=== PATIENT | male | born 1990 | race Caucasian/White ===

== ENCOUNTER 2017-04-29 06:51 | Inpatient (IN) ==
[2017-04-29 07:24] LABS: Basophils % 0.2 % (0.0-0.8); Eosinophils # 0.1 10*3/uL (0.0-0.87); Eosinophils % 0.7 % (0.00-10.9); Hematocrit 48.6 VOL% (42.0-52.0); Hemoglobin 17.5 GM/DL (14.0-18.0); Immature Granulocytes % 0.8 %; Lymphocytes # 1.5 10*3/uL (1.4-4.0); Lymphocytes % 11.4 % (21.2-54.2); Mean Corpuscular Hemoglobin 34 PG (27-34); Mean Corpuscular Volume 95.3 FL (87-102); Mean Platelet Volume 9.3 FL (9.6-12.0); Monocytes # 0.6 10*3/uL (0.11-0.8); Monocytes % 4.4 % (1.7-12.7); Neutrophils # 10.8 10*3/uL (1.4-7.4); Neutrophils % 82.5 % (38.7-73.9); Platelet Count 231 T/CUMM (130-400); Red Cell Distribution Width 12.9 % (9.3-17.3)
--- NOTE | 2017-04-29 07:42 | CT Report ---
Referring physician: Mono Magaña EXAM: CT abdomen and pelvis without contrast DATE: 04/29/2017 COMPARISON: None REASON: Right lower quadrant pain TECHNIQUE: Axial images of the abdomen and pelvis were obtained without the use of contrast. Coronal and sagittal reformatted images were also provided. Total DLP is 516.80 mGy*cm. FINDINGS: Minimal dependent findings at the visualized lung bases. The liver is normal in size with no masses, dilated ducts, calcified gallstones. The spleen is borderline in size. The pancreas, adrenal glands, and kidneys have an unremarkable appearance. No renal or ureteral calculi. The abdominal aorta is normal in size with no adjacent adenopathy. The stomach is minimally distended with fluid/food. No significant dilatation of the small bowel with small fat-containing umbilical hernia. Portions of the colon appears somewhat decompressed with no evidence of definite diverticulitis, appendicitis, free air, or free fluid. 9.72 mm hypodensity anterior medial to the sigmoid colon noted on image 141. The prostate has an unremarkable appearance with decompressed urinary bladder. No acute osseous findings. IMPRESSION: The stomach is minimally distended with fluid/food. Small fat-containing umbilical hernia. Limited evaluation of bowel without oral contrast but there is no evidence of appendicitis. 9.72 mm finding projecting from the medial aspect of the sigmoid colon. This finding could be related to minimal diverticulosis but it would be difficult to exclude epiploic appendagitis, small omental infarction, etc. The CT exam was performed using one or more of the following dose reduction techniques: Automated exposure control and adjustment of the mA and/or kV according to patient size. PROCEDURE INTERPRETED AT [facility] DEPARTMENT OF RADIOLOGY Final Report Signed by: Dr. Nini Martin
[2017-04-29 08:07] LABS: Albumin 3.8 G/DL (3.4-5.0); Bilirubin,Total 0.6 MG/DL (0.2-1.0); Calcium 8.7 MG/DL (8.5-10.1); Osmolality,Calculated 279.3 MOS/KG (273-304); Total Protein 7.3 G/DL (6.4-8.3)
--- NOTE | 2017-04-29 08:28 | Emergency Department Note ---
Sergey Antonio Hilary, am scribing for, and in the presence of, Mono Magaña MD 07:13. Archana Antonio Phillip K, MD, personally performed the services described in this documentation, ascribed by Komal Rincon in my presence, and it is both accurate and complete 828 . Arrival - Arrival Chief Complaint: Abdominal / Flank Pain Stated Complaint: acute lower r quadrant pain ED Nursing Triage Note: c/o rlq abd pain onset about 0400 this am. denies n/v/d or urinate problmes Mode of Arrival: Ambulatory Limitations: No Limitations Source: Patient, RN Notes Reviewed - History of Present Illness HPI Narrative: Pt is a 26 y/o brought to the ED via EMS for c/o RLQ abdominal pain which onset about 0400. Pt states that the pain is intermittent sharp pain, he can get comfortable but if he moves the pain comes back. He denies hematuria, nausea, vomiting, fever or hx of kidney stones. No other complaints or problems stated in the ED. Onset (ago): hour(s) Consistency: intermittent Severity: moderate Severity scale (1-10): 2 Quality: sharp Allergies/Adverse Reactions: Allergies Allergy/AdvReac Type Severity Reaction Status Date / Time No Known Allergies Allergy Unverified 04/29/17 07:00 Home Medications: Home Medications Medication Instructions Recorded Confirmed Type No Known Home Medications [No 04/29/17 04/29/17 History Known Home Medications] Review of System - Review of System 12 point system: reviewed and no additional remarkable complaints except as stated - Review of System Constitutional: Absent: fever Gastrointestinal: Present: abdominal pain (RUQ, RLQ). Absent: nausea, vomiting Genitourinary male: Absent: hematuria Medical,Surgical,& Family Hx - Social History Smoking Status: Smoker, status unknown Frequency of Alcohol Use: Occasionally Type of Drug Use: None Exam Vital Signs: Vital Signs Temperature 98.4 F 04/29/17 16:00 Pulse Rate 69 04/29/17 16:00 Respiratory Rate 18 04/29/17 16:00 Blood Pressure 122/93 04/29/17 16:00 O2 Sat by Pulse Oximetry 97 04/29/17 16:00 - General General appearance: alert, in no apparent distress - Head Head exam: Present: atraumatic, normocephalic - Eye Eye exam: Present: normal appearance, PERRL, EOMI - ENT ENT exam: Present: mucous membranes moist, TM's normal bilaterally. Absent: mucous membranes dry - Neck Neck exam: Present: full ROM, trachea midline. Absent: tenderness - Chest Chest inspection: Present: symmetric chest wall rise. Absent: tenderness - Respiratory Respiratory exam: Present: normal lung sounds bilaterally. Absent: respiratory distress - Cardiovascular Cardiovascular exam: Present: regular rate, normal rhythm, normal heart sounds. Absent: murmur, rubs, gallop - Abdominal Exam Abdominal exam: Present: soft, tenderness (RUQ and RLQ), normal bowel sounds, tenderness at McBurney's Point. Absent: distention, guarding, rebound - Extremities Exam Extremities exam: Present: full ROM. Absent: tenderness - Back Exam Back exam: Present: full ROM. Absent: tenderness - Neurological Exam Neurological exam: Present: alert, oriented X3, CN II-XII intact. Absent: motor sensory deficit - Psychiatric Psychiatric exam: Present: normal affect, normal mood - Skin Skin exam: Present: warm, dry, intact, normal color. Absent: rash Course Course Narrative: On reexamination at 820 patient has his pain localized in the right upper quadrant and has no right lower quadrant tenderness. There were no gallstones seen on his CT. We will get a HIDA scan to evaluate his gallbladder function. Patient discussed with the hospitalist. HIDA scan shows all the isotope confined to the liver there was no excretion to the gallbladder or small intestine. We will obtain a sonogram of his gallbladder to see if he has an obstructed common bile duct. We will admit to the hospitalist for further evaluation. Sonogram shows gallstones with acute cholecystitis and sludge. Will admit and consult surgery and GI for possible ERCP. Results - Labs CBC & BMP: 04/29/17 07:09 04/29/17 07:09 Lab Results: I have reviewed the patients labs Labs: Laboratory Tests 04/29/17 07:09 WBC 13.0 H RBC 5.10 Hgb 17.5 Hct 48.6 Plt Count 231 MPV 9.3 L Neut % (Auto) 82.5 H Lymph % (Auto) 11.4 L Neut # (Auto) 10.8 H Laboratory Tests 04/29/17 07:09 Sodium 141 Potassium 4.0 Chloride 107 Carbon Dioxide 29 AST 130 H ALT 68 H Alkaline Phosphatase 139 H Total Protein 7.3 Albumin/Globulin Ratio 1.0 L Laboratory Tests 04/29/17 07:09 Urine pH 8.0 Ur Specific [place] 1.016 Urine Urobilinogen 4.0 H Urine WBC 4 Laboratory Tests 04/29/17 07:09 INR 1.0 PT Patient/Control Mix 10.8 Circ Anticoag PTT 30.8 - Diagnostic Findings Procedure: CT Abdomen and Pelvis: report reviewed by me (The stomach is minimally distended with fluid/food. Small fat containing umbilical hernia. Limited evaluation of bowel without oral contrast vut there is no evidence of appendicitis. 9.72mm finding projection from the medial aspect of the sigmoid colon. This finding could be related to minimal diverticulosis but it would be difficult to exclude epiploic appendagitis, small omental infarction.), Ultrasound: report reviewed by me (Cholelithiasis with acute cholecystitis, common bile duct is at the upper limits of normal.) Disposition Clinical Impression: Right upper quadrant abdominal pain, Elevated liver enzymes, Cholelithiasis and acute cholecystitis without obstruction Case discussed with: patient, patient's family Disposition: Still a Patient Condition: Guarded
[2017-04-29 10:12] LABS: Amorphous Crystals,Urine Occasional /HPF (Few); Apearance,Urine CLOUDY (Clear); Bilirubin,Urine Negative (Negative); Blood, Urine Negative (Negative); Glucose,Urine (UA) Negative (Negative); Ketones,Urine Negative (Negative); Mucus,Urine Few /LPF (Occasional); Nitrite,Urine Negative (Negative); Protein,Urine Negative; Urine Color Yellow (Yellow); Urine Specific Gravity 1.016 (1.001-1.035); WBC,Urine 4 /HPF (0-6)
[2017-04-29 10:30] LABS: PT Patient Result 10.8 SECS; Partial Thromboplastin Time 30.8 SECS (0-40)
[2017-04-29 11:29] LABS: Hepatitis A Ab IgM Quant 0.07 Index; Hepatitis A Ab IgM Result Negative (Negative); Hepatitis B Core IgM Quant 0.16 Index; Hepatitis B Core IgM Result Negative (Negative); Hepatitis B Surface Ag Quant 0.24 Index; Hepatitis B Surface Ag Result Negative (Negative); Hepatitis C Virus Ab Quant 0.02 Index; Hepatitis C Virus Ab Result Negative (Negative)
--- NOTE | 2017-04-29 11:38 | Nuclear Medicine Report ---
Exam: Biliary Scan Date: 04/29/2017 Comparison: CT 04/29/2017 Reason: Right upper quadrant pain Technique: The patient was administered 5 mCi of technetium 99m Choletec IV. Images of the right upper quadrant were then acquired over 150 minutes. Ejection fraction not performed. Findings: The liver is normal in size with uniform activity. No isotopic activity noted in the gallbladder or bile ducts on the 2 1/2 hour delayed scans. Ejection fraction not performed due to nonvisualization of the gallbladder. Impression: Nonvisualization of the bile ducts and gallbladder which can be seen with acute high-grade CBD obstruction, hepatocellular disease, opioid medication, etc. Gallbladder ultrasound is recommended for further evaluation as discussed with Dr. Magaña at 11:30 AM on 04/29/2017. PROCEDURE INTERPRETED AT [facility] DEPARTMENT OF RADIOLOGY Final Report Signed by: Dr. Nini Martin
--- NOTE | 2017-04-29 12:05 | General Surgery Consult Note ---
Assessment and Plan (1) Right upper quadrant abdominal pain Status: Acute Assessment and plan: Patient with possible acute cholecystitis associated with cholelithiasis. Recommend IV antibiotics and GI consultation with repeat labs in the morning. Patient may require cholecystectomy, but we will await GI consultation with evaluation and recommendations prior to final decisions. We appreciate this consultation and will continue to follow along. Current Visit: Yes History of Present Illness Chief complaint: Right sided abdominal pain History of present illness: Mr. Zapata is a 26 year old male presented who presented to the emergency department with acute onset of right-sided abdominal pain this morning approximately 4:30 AM. Patient reports the pain awoke him from his late with no associated nausea or vomiting. He has had no fever, chills, riders, melena, hematochezia, bright red blood per rectum. Patient reports a similar pain approximately 1 week ago which only lasted a few minutes and was not necessarily associated with a meal. Patient denies any significant Tylenol or NSAID use. He does drink approximately 2 beers daily. No previous abdominal procedures. Allergies Allergy/AdvReac Type Severity Reaction Status Date / Time No Known Allergies Allergy Unverified 04/29/17 07:00 Medical,Surgical,& Family Hx - Medical History Medical History: noncontributory - Surgical History Surgical History: noncontributory - Social History Smoking Status: Smoker, status unknown Frequency of Alcohol Use: Occasionally Type of Drug Use: None - Constitutional Constitutional: Present: as per HPI - Cardiovascular Cardiovascular: Absent: chest pain at rest, chest pain with activity - Respiratory Respiratory: Absent: cough, wheezing - Gastrointestinal Gastrointestinal: Present: as per HPI - Genitourinary Genitourinary: Absent: dysuria Exam - Constitutional Vitals: Period Temp Pulse Resp BP Sys/Gonsales Pulse Ox Last 24 Hr 97.4 F-97.4 F 62-78 18-20 107-125/81-93 95-96 General appearance: no acute distress - Head Head exam: Present: normocephalic - Eye Eye exam: Absent: scleral icterus - GI/Abdominal GI/Abdominal exam: Present: tenderness (Patient is tender over the right lower quadrant and with worsening tenderness over the right upper quadrant; positive Robledo sign), soft. Absent: distended, firm - Extremities Exam Extremities exam: Absent: calf tenderness, edema - Neurological Exam Neurological exam: Present: alert, oriented X3 - Skin Skin exam: Present: normal color Results - Labs CBC & BMP: 04/29/17 07:09 04/29/17 07:09 Lab Results: I have reviewed the past 24 hour labs Labs: AST 130, ALT 68, alkaline phosphatase 139; urinalysis unremarkable HIDA scan nonvisualization of bile ducts and gallbladder Abdominal ultrasound: Final read pending; reported patient with multiple gallstones and biliary sludge Abdominal CT scan reviewed and noted
--- NOTE | 2017-04-29 12:31 | Ultrasound Report ---
Exam: US abdomen Date: 04/29/2017 11:42 AM Comparison: CT and biliary scan 04/29/2017 Indication: Right upper quadrant pain, abnormal biliary scan Technique:[Multiple transabdominal real-time scans were obtained of the right upper quadrant. Color-flow scans were obtained. Ultrasound images were captured and stored.] Findings: Hyperechoic foci in the gallbladder with posterior acoustical shadowing consistent with cholelithiasis and sludge. The wall of the gallbladder measures 4.8 mm with very minimal pericholecystic fluid. CBD is at the upper limits of normal in size measuring 5.8 mm. The liver,, right kidney, and visualized pancreas have an unremarkable appearance. Right kidney measures 106 mm in length. Portions of the pancreas, aorta including the aortic bifurcation, and IVC are obscured by bowel gas. Color flow documented in the portal vein. Impression: Cholelithiasis with sludge in the gallbladder. Gallbladder wall thickening with minimal pericholecystic fluid which can be seen with acute cholecystitis. The common bile duct is at the upper limits of normal in size measuring 5.8 mm. ERCP may be helpful for further evaluation because of findings noted on biliary scan. The Ultrasound images were captured and stored. PROCEDURE INTERPRETED AT [facility] DEPARTMENT OF RADIOLOGY Final Report Signed by: Dr. Nini Martin
--- NOTE | 2017-04-29 14:18 | Hospitalist History & Physical ---
Assessment and Plan (1) Cholelithiasis Status: Acute Assessment and plan: Given the elevation of her liver function tests and leukocytosis with abdominal pain that localized in the right upper quadrant as well as the patient's ultrasound findings I believe he has symptomatic cholelithiasis versus choledocholithiasis with cholecystitis. The patient has been seen by general surgery and a GI consult is pending. I will start him on IV antibiotics, IV fluids, pain medications. Further workup will depend on his response to therapy. Current Visit: Yes Qualifiers: Cholelithiasis location: gallbladder Cholecystitis presence: with cholecystitis Cholecystitis acuity: acute Biliary obstruction: without biliary obstruction Qualified Code(s): K80.00 - Calculus of gallbladder with acute cholecystitis without obstruction (2) Right upper quadrant abdominal pain Status: Acute Current Visit: Yes (3) Elevated liver enzymes Status: Acute Assessment and plan: Hepatitis panel negative Consult GI for consideration of ERCP Current Visit: Yes History of Present Illness Chief complaint: Abdominal pain History of present illness: Mr. Zapata is a 26 year old male presents to the emergency department with right upper quadrant abdominal pain that began about 0400. Pt states that the pain is intermittent sharp pain, he can get comfortable but if he moves the pain comes back. He denies hematuria, nausea, vomiting, fever or hx of kidney stones. No other complaints or problems stated in the ED. He underwent an evaluation in the emergency department with CT and ultrasound and HIDA scan. He had evidence of gallstones on ultrasound with lack of isotope uptake in the gallbladder on HIDA. He is being admitted to the hospital service for further evaluation and treatment of his cholelithiasis/ choledocholithiasis with possible cholecystitis. The patient denies any past medical history. He takes no medications and has no allergies. Home Medications Medication Instructions Recorded Confirmed Type No Known Home Medications [No 04/29/17 04/29/17 History Known Home Medications] Allergies Allergy/AdvReac Type Severity Reaction Status Date / Time No Known Allergies Allergy Unverified 04/29/17 07:00 Medical,Surgical,& Family Hx - Family History Family History: Denies;: Family Heart Disease - Social History Smoking Status: Current some day smoker Frequency of Alcohol Use: Occasionally Type of Drug Use: Marijuana Marital Status: Single Lives With:: Alone Functional capacity: independent ambulation 12 point system: reviewed and no additional remarkable complaints except as stated - Gastrointestinal Gastrointestinal: Present: as per HPI, abdominal pain, nausea Exam - Constitutional Vitals: Period Temp Pulse Resp BP Sys/Gonsales Pulse Ox Last 24 Hr 97.4 F-97.4 F 56-78 18-20 105-137/75-93 95-98 Exam: Constitutional System: No distress. No tremulousness. Head: Normocephalic, atraumatic. Ears, Nose and Throat System: No pain or tenderness. No epistaxis or discharge Eyes System: Pupils equal, round, and reactive. Extraocular muscles intact. Neck: Supple, without adenopathy, No jugular venous distention. No thyromegaly, neck mass, or prior surgery apparent. Respiratory System: Chest clear to auscultation. Cardiovascular System: Heart with regular rate and rhythm. No murmur. GI System: Abdomen soft, tender in the right upper quadrant. Positive Robledo sign. Normo active bowel sounds present. Musculoskeletal System: limbs with no pedal edema. Full distal pulses. Normal capillary refill. Neurological System: No discernable sensory deficit. No aphasia Psychiatric System: Conversation is rational Results - Labs CBC & BMP: 04/29/17 07:09 04/29/17 07:09 Lab Results: I have reviewed the past 24 hour labs - Diagnostic Findings Procedure: CT Abdomen and Pelvis: report reviewed by me, Ultrasound: report reviewed by me
[2017-04-29] MEDS ORDERED: SODIUM CHLORIDE 0.9% 1,000 ML IV STA (14:21)
[2017-04-29] MEDS ORDERED: PROMETHAZINE 25 MG TABLET PO PRN (14:25)
[2017-04-29] MEDS ORDERED: ZALEPLON 5 MG CAPSULE PO PRN (14:25)
--- NOTE | 2017-04-29 14:51 | Gastrointestinal Consult Note ---
<Kayce Camacho - Last Filed: 04/29/17 14:45> Assessment and Plan (1) Right upper quadrant abdominal pain Status: Acute Assessment and plan: 04/29-Sudden onset of RUQ pain with nausea with findings as below on HIDA and US. Elevated LFTs. Surgery has been consulted. Plan for tentative ERCP to further evalute findings as below. Plan and addendum to follow by Dr Pugh. Current Visit: Yes History of Present Illness Chief complaint: Abd pain History of present illness: Mr. Zapata is a 26 year old male who was admitted to the hospital with onset of RUQ abdominal pain. Pt states that he was in his usual state of health until this morning when he got up to go to work and had a sudden severe onset of RUQ pain that radiated thru to his back. He states that the pain was very severe nature and was incapacitating as well. He states his became alarmed due to his pain level and brought him to the ER via EMS. Pt states that he has had this pain in the past on several occasions but not to this severity. He states the pain is not associated with meals that he can recall. He did have some nausea but denies any vomiting with this. Denies any fever, chills or recent weight loss. He states that he does drink 1-2 beers daily on average. Denies prior knowledge of elevated LFTS in the past. On admission, he was found to have elevated LFTs with AST 130, ALT 68, and Alk phos 139. He did have some mild leukocytosis with WBC 55158. Hepatitis panel negative. Abd US noted to show cholelithiasis with sludge in gallbladder as well as some wall thickening, CBD 5.8mm. HIDA shows nonvisualization of bile ducts and gallbladder seen with acute high grade CBD obstruction. CT of abdomen results noted as well with mention of 9.72mm projected finding in medial aspect of sigmoid colon with no prior GI history or endoscopy. Home Medications Medication Instructions Recorded Confirmed Type No Known Home Medications [No 04/29/17 04/29/17 History Known Home Medications] Allergies Allergy/AdvReac Type Severity Reaction Status Date / Time No Known Allergies Allergy Unverified 04/29/17 07:00 Medical,Surgical,& Family Hx - Family History Family History: Denies;: Family Heart Disease - Social History Smoking Status: Current some day smoker Frequency of Alcohol Use: Occasionally Type of Drug Use: Marijuana 12 point system: reviewed and no additional remarkable complaints except as stated - Constitutional Constitutional: Present: as per HPI - EENT Eyes: Present: as per HPI Ears: Present: as per HPI Nose, mouth and throat: Present: as per HPI - Cardiovascular Cardiovascular: Present: as per HPI - Respiratory Respiratory: Present: as per HPI - Gastrointestinal Gastrointestinal: Present: as per HPI, abdominal pain, nausea - Genitourinary Genitourinary: Present: as per HPI - Musculoskeletal Musculoskeletal: Present: as per HPI - Neurological Neurological: Present: as per HPI - Psychiatric Psychiatric: Present: as per HPI - Endocrine Endocrine: Present: as per HPI - Hematologic/Lymphatic Hematologic/Lymphatic: Present: as per HPI Exam - Constitutional Vitals: Period Temp Pulse Resp BP Sys/Gonsales Pulse Ox Last 24 Hr 97.4 F-97.4 F 52-78 18-20 105-137/75-93 95-98 General appearance: normal weight, no acute distress - Head Head exam: Present: normal inspection, normocephalic - Eye Eye exam: Present: other (lids and conjunctiva unremarkable). Absent: scleral icterus - ENT ENT exam: Present: normal exam, normal oropharynx - Neck Neck exam: Present: normal inspection - Respiratory Respiratory exam: Present: clear to auscultation bilaterally. Absent: rales, rhonchi, wheezes - Cardiovascular Cardiovascular exam: Present: regular rate and rhythm. Absent: diastolic murmur , JVD, systolic murmur - GI/Abdominal GI/Abdominal exam: Present: normal bowel sounds, tenderness (RUQ), soft. Absent : ascites, distended, mass, organomegaly - Extremities Exam Extremities exam: Present: normal inspection, full ROM - Back Exam Back exam: Present: normal inspection - Neurological Exam Neurological exam: Present: alert, oriented X3 - Psychiatric Psychiatric exam: Present: normal affect, normal mood - Skin Skin exam: Present: normal color, warm, dry Results - Labs CBC & BMP: 04/29/17 07:09 04/29/17 07:09 Lab Results: I have reviewed the past 24 hour labs - Diagnostic Findings Procedure: CT Abdomen and Pelvis: report reviewed by me, Ultrasound: report reviewed by me <Anish Pugh - Last Filed: 04/29/17 17:24> History of Present Illness Chief complaint: 3030 History of present illness: Mr. Zapata is a 26 year old male Exam - Constitutional Vitals: Period Temp Pulse Resp BP Sys/Gonsales Pulse Ox Last 24 Hr 97.4 F-98.4 F 52-78 18-20 105-137/75-93 95-98 Results - Labs CBC & BMP: 04/29/17 07:09 04/29/17 07:09
[2017-04-29] MEDS: DEXTROSE 5% NACL 0.45% 1,000 ML IV SCH (15:44)
[2017-04-29] MEDS: PIPERACILLIN/TAZOBACTAM 3,375 MG in SODIUM CHLORIDE 0.9% 100 ML IV SCH ×2 (15:46→23:08)
[2017-04-29] MEDS: MORPHINE 2 MG/1 ML SYRINGE IV PRN ×2 (17:27→21:01)
[2017-04-29] MEDS: ONDANSETRON 4 MG/2 ML VIAL IV PRN (17:35)
[2017-04-29] MEDS: ENOXAPARIN 40 MG/0.4 ML SYRINGE SUBCUT SCH (20:16)
[2017-04-30] MEDS: MORPHINE 2 MG/1 ML SYRINGE IV PRN ×4 (00:50→18:18)
[2017-04-30] MEDS: ONDANSETRON 4 MG/2 ML VIAL IV PRN ×4 (00:50→18:17)
[2017-04-30] MEDS: DEXTROSE 5% NACL 0.45% 1,000 ML IV SCH ×3 (02:32→22:11)
[2017-04-30 05:31] LABS: Basophils % 0.3 % (0.0-0.8); Eosinophils # 0.2 10*3/uL (0.0-0.87); Eosinophils % 2.3 % (0.00-10.9); Hematocrit 43.7 VOL% (42.0-52.0); Immature Granulocytes % 0.6 %; Immature Granulocytes Absolute 0.04 #; Lymphocytes # 1.6 10*3/uL (1.4-4.0); Lymphocytes % 22.5 % (21.2-54.2); Mean Corpuscular HGB Conc 35.2 GM/DL (32-36); Mean Corpuscular Hemoglobin 34 PG (27-34); Mean Corpuscular Volume 96.5 FL (87-102); Mean Platelet Volume 10.5 FL (9.6-12.0); Monocytes # 0.4 10*3/uL (0.11-0.8); Neutrophils # 4.8 10*3/uL (1.4-7.4); Neutrophils % 68.3 % (38.7-73.9); Red Blood Count 4.53 MC/CUMM (3.8-5.5); Red Cell Distribution Width 12.7 % (9.3-17.3)
[2017-04-30 05:32] LABS: INR 1.1; PT Patient Result 11.4 SECS
[2017-04-30 05:35] LABS: Hemoglobin 15.4 GM/DL (14.0-18.0); Platelet Count 175 T/CUMM (130-400)
[2017-04-30 06:05] LABS: Albumin 3.1 G/DL (3.4-5.0); Bilirubin,Total 3.5 MG/DL (0.2-1.0); Osmolality,Calculated 276.4 MOS/KG (273-304)
[2017-04-30 06:16] LABS: Risk Ratio 4.08
[2017-04-30] MEDS: PIPERACILLIN/TAZOBACTAM 3,375 MG in SODIUM CHLORIDE 0.9% 100 ML IV SCH ×3 (06:46→22:52)
[2017-04-30] MEDS: PANTOPRAZOLE 40 MG TABLET PO SCH (08:32)
--- NOTE | 2017-04-30 11:01 | General Surgery Progress Note ---
Assessment and Plan (1) Right upper quadrant abdominal pain Status: Acute Assessment and plan: Patient will proceed with ERCP today. Anticipate laparoscopic cholecystectomy in a.m. pending no unforeseen complications. The risks of the procedure were reviewed with patient including but limited to risk for open procedure, infection, bleeding, injury to adjacent structures, adhesions, bowel obstruction , the need for additional procedures, and other cardiac, pulmonary, and/or neurologic events associated which may be unforeseeable. The patient expressed understanding of these risks and agrees to proceed. Current Visit: Yes Subjective Patient reports: Present: no new complaints (Awaiting ERCP. RUQ pain slighlty improved but persistent. ) Exam - Constitutional Vitals: Period Temp Pulse Resp BP Sys/Gonsales Pulse Ox Last 24 Hr 96.6 F-98.6 F 47-76 16-20 106-137/64-95 95-100 General appearance: no acute distress - Head Head exam: Present: normocephalic - GI/Abdominal GI/Abdominal exam: Present: tenderness (RUQ), soft. Absent: distended, firm, guarding - Extremities Exam Extremities exam: Absent: calf tenderness, edema - Neurological Exam Neurological exam: Present: alert, oriented X3 Speech: Present: normal - Skin Skin exam: Present: normal color Results - Labs CBC & BMP: 04/30/17 03:45 04/30/17 03:45 Labs: Leukocytosis resolved Bilirubin increased to 3.5; AST increased at 254; ALT increased to 92; alkaline phosphatase increased at 147
[2017-04-30] MEDS ORDERED: fentaNYL 100 MCG/2 ML VIAL ONE (11:11)
[2017-04-30] MEDS ORDERED: DIAZEPAM 5 MG TABLET PO ONE (11:27)
[2017-04-30] MEDS ORDERED: PANTOPRAZOLE 40 MG TABLET PO ONE (11:27)
[2017-04-30] MEDS ORDERED: LACTATED RINGERS 1,000 ML IV SCH (11:30)
--- NOTE | 2017-04-30 11:37 | History and Physical Update ---
History and Physical Update - Physical Exam Mental Status: alert and oriented Heart: regular rate and rhythm Lung: clear to auscultation Abdomen: within normal limits Vitals: within normal limits
--- NOTE | 2017-04-30 11:40 | Operative Note ---
Date of procedure: 04/30/17 Pre-op diagnosis: Suspected choledocholithiasis Procedure: Endoscopic retrograde cholangiopancreatography with sphincterotomy and balloon stone extraction 26-year-old gentleman admitted with abrupt onset of abdominal pain abnormal liver test radiographic examination suggest choledocholithiasis now for ERCP to further evaluate. Informed consent was obtained the patient He was sedated with MAC anesthesia per anesthesia protocol. Patient placed in the prone position the Olympus flexible video duodenal scope inserted blindly into the upper esophagus. Under direct vision it was advanced through the esophagus stomach pylorus duodenum to a normal-appearing ampulla. Using a sphincterotome the ampulla was cannulated pancreatic duct was noted to be within normal limits from the head body tail the pancreas. The catheter was subsequently repositioned with selective cannulation of the common bile duct with what appears to be a filling defect in the distal common bile duct. No significant ductal dilatation was observed the cystic duct initially appeared to be occluded but did visualize. It was elected to proceed with sphincterotomy and 8 mm sphincterotomy was performed with good hemostasis. Subsequent balloon catheter was inserted and the biliary tree pulled out 3 inflated 8 mm with removal of stone debris. No residual stones or debris were noted on the final image. The procedure was terminated placed our procedure well his discharge recovery good condition. Postop diagnosis: 1. Choledocholithiasis-status post sphincterotomy and balloon stone extraction 2. Cholelithiasis-proceed with cholecystectomy per surgery. Anesthesia: [facility] [place] [facility] Surgeon / Physician: Anish Pugh Estimated blood loss: none Specimens: none sent Condition: stable Disposition: post procedure unit Results - Labs CBC & BMP: 04/30/17 03:45 04/30/17 03:45 Discharge Plan - Discharge Medications No Action No Known Home Medications [No Known Home Medications] - Follow Up or Referral - Forms/Instructions
--- NOTE | 2017-04-30 11:45 | Anesthesia Post-Op ---
Anesthesia Post OP - Post Ansesthetic Evaluation Patient seen in post op: Yes Resp: within normal limits CV: within normal limits Mental: within normal limits Temp: within normal limits Lvia-Ja-Nlldxfglx: within normal limits Nausea and Vomiting: within normal limits Pain: within normal limits
--- NOTE | 2017-04-30 11:58 | EKG Report ---
Stationary ECG Study [facility] Test Date: 04/30/2017 11:57:47 AM Pat Name: MARIAM GARCIA Department: Room: 344 Gender: M Diagnostic Cardiac Sonographer: RISHABH : 1990 Requested by: Vamsi Flores Order Number: [id number] Reading MD: PASHA MOLINA Intervals [place] Rate: 48 P: 38 TN: 151 QRS: 75 QRSD: 94 T: 61 QT: 421 QTc: 389 Interpretive Statements SINUS BRADYCARDIA WITH MARKED SINUS ARRHYTHMIA Electronically Signed On 04-30-17 16:57:57 CDT by PASHA MOLINA [email or web address]
--- NOTE | 2017-04-30 13:13 | Fluoroscopy Report ---
FL ERCP w sphincterotomy Indication: Abdominal pain. Comparison: None. Technique: Multiple fluoroscopic images were obtained using the C-arm in the anterior projection during ERCP. The procedure is performed by Dr. Pugh. Findings: No filling defects are demonstrated involving the opacified portions of the biliary tree or main pancreatic duct. The distal common bile duct appears to have a short segment stenosis as it approaches the confluence with the main pancreatic duct. Differential considerations include post infectious etiologies as well as neoplastic etiologies. On later images within the study there may be some improvement in the appearance. Total fluoroscopy time is 1 minute 44 seconds. Impression: 1. Findings as detailed. 04/30/2017 1:09 PM PROCEDURE INTERPRETED AT [facility] DEPARTMENT OF RADIOLOGY Final Report Signed by: Dr. Tim De La Torre
--- NOTE | 2017-04-30 17:17 | Hospitalist Progress Note ---
Assessment and Plan (1) Cholelithiasis Status: Acute Assessment and plan: Given the elevation of her liver function tests and leukocytosis with abdominal pain that localized in the right upper quadrant as well as the patient's ultrasound findings I believe he has symptomatic cholelithiasis versus choledocholithiasis with cholecystitis. The patient has been seen by general surgery and a GI. I will start him on IV antibiotics, IV fluids, pain medications. Further workup will depend on his response to therapy. 04/30/17 The patient has undergone ERCP with stone retrieval. He is being evaluated by general surgery for possible cholecystectomy. Current Visit: Yes Qualifiers: Cholelithiasis location: gallbladder Cholecystitis presence: with cholecystitis Cholecystitis acuity: acute Biliary obstruction: without biliary obstruction Qualified Code(s): K80.00 - Calculus of gallbladder with acute cholecystitis without obstruction (2) Right upper quadrant abdominal pain Status: Acute Current Visit: Yes (3) Elevated liver enzymes Status: Acute Assessment and plan: Hepatitis panel negative GI consult reviewed. ERCP report noted. Appreciate Dr. Pugh's help. Current Visit: Yes Hospitalist: Subjective Interval history: Patient seen and examined. No acute events overnight. Case discussed with nursing staff. Labs reviewed. Patient seen and examined status post ERCP with stone removal and sphincterotomy. He reports continued right upper quadrant abdominal pain. Exam - Constitutional Vitals: Period Temp Pulse Resp BP Sys/Gonsales Pulse Ox Last 24 Hr 96.6 F-98.6 F 47-76 16-20 106-137/64-95 95-100 Exam: Constitutional System: No distress. No tremulousness. Head: Normocephalic, atraumatic. Ears, Nose and Throat System: No pain or tenderness. No epistaxis or discharge Eyes System: Pupils equal, round, and reactive. Extraocular muscles intact. Neck: Supple, without adenopathy, No jugular venous distention. No thyromegaly, neck mass, or prior surgery apparent. Respiratory System: Chest clear to auscultation. Cardiovascular System: Heart with regular rate and rhythm. No murmur. GI System: Abdomen soft, tender in the right upper quadrant. Positive Robledo sign. Normo active bowel sounds present. Musculoskeletal System: limbs with no pedal edema. Full distal pulses. Normal capillary refill. Neurological System: No discernable sensory deficit. No aphasia Psychiatric System: Conversation is rational Results - Labs CBC & BMP: 08/30/17 03:45 04/30/17 03:45 Lab Results: I have reviewed the past 24 hour labs
[2017-04-30] MEDS: ENOXAPARIN 40 MG/0.4 ML SYRINGE SUBCUT SCH (21:23)
[2017-05-01 05:29] LABS: Albumin 3.1 G/DL (3.4-5.0); Bilirubin,Total 1.6 MG/DL (0.2-1.0); Calcium 8.4 MG/DL (8.5-10.1); Osmolality,Calculated 276.4 MOS/KG (273-304); Potassium 4.2 MMOL/L (3.5-5.1)
[2017-05-01] MEDS ORDERED: PANTOPRAZOLE 40 MG TABLET PO ONE (06:00)
[2017-05-01] MEDS ORDERED: DIAZEPAM 5 MG TABLET PO ONE (06:00)
[2017-05-01] MEDS: MORPHINE 2 MG/1 ML SYRINGE IV PRN (07:28)
[2017-05-01] MEDS: PIPERACILLIN/TAZOBACTAM 3,375 MG in SODIUM CHLORIDE 0.9% 100 ML IV SCH (07:28)
[2017-05-01] MEDS: PANTOPRAZOLE 40 MG TABLET PO SCH (08:54)
[2017-05-01] MEDS ORDERED: TISSUE ADHESIVE 1 EACH APPLICATOR TOP ONE (09:04)
[2017-05-01] MEDS ORDERED: LIDOCAINE 1%/EPI INJ 20 ML VIAL ONE (09:04)
[2017-05-01] MEDS ORDERED: BUPIVACAINE MPF 0.25% /EPI 30 ML VIAL ONE (09:06)
[2017-05-01] MEDS: DEXTROSE 5% NACL 0.45% 1,000 ML IV SCH (09:07)
--- NOTE | 2017-05-01 09:39 | Gastrointestinal Progress Note ---
<Kayce Camacho - Last Filed: 05/01/17 09:37> Assessment and Plan (1) Right upper quadrant abdominal pain Status: Acute Assessment and plan: 05/01-Post ERCP with findings noted as below. LFTs trending down. For lap alfredo this morning. Plan and addendum to follow by Dr Pugh. 04/29-Sudden onset of RUQ pain with nausea with findings as below on HIDA and US. Elevated LFTs. Surgery has been consulted. Plan for tentative ERCP to further evalute findings as below. Plan and addendum to follow by Dr Pugh. Gastroenterology - PN: Subj Interval history: CC: Choledocholithiasis Pt is seen, awake and alert, with family at side, getting ready to go for laprascopic cholecystectomy this morning. He is post ERCP with findings of ductal stone and sludge with sphincterotomy. He states he had an uneventful night and denies any abdominal pain, nausea or vomiting. His LFTS are trending downward at this time. Abdomen is soft, nontender. ROS: Denies SOB or chest pain Exam (Progress Note) - Constitutional Vitals: Period Temp Pulse Resp BP Sys/Gonsales Pulse Ox Last 24 Hr 96.6 F-98.4 F 50-63 16-20 101-137/57-95 94-100 General appearance: normal weight, no acute distress - Head Head exam: Present: normal inspection, normocephalic - Eye Eye exam: Present: other (lids and conjuncitva unremarkable). Absent: scleral icterus - ENT ENT exam: Present: normal exam, normal oropharynx - Neck Neck exam: Present: normal inspection - Respiratory Respiratory exam: Present: clear to auscultation bilaterally. Absent: rales, rhonchi, wheezes - Cardiovascular Cardiovascular exam: Present: regular rate and rhythm. Absent: diastolic murmur , JVD, systolic murmur - GI/Abdominal GI/Abdominal exam: Present: normal bowel sounds, soft. Absent: ascites, distended, mass, organomegaly, tenderness - Extremities Exam Extremities exam: Present: normal inspection, full ROM - Back Exam Back exam: Present: normal inspection - Neurological Exam Neurological exam: Present: alert, oriented X3 - Psychiatric Psychiatric exam: Present: normal affect, normal mood - Skin Skin exam: Present: normal color, warm, dry Results - Labs CBC & BMP: 04/30/17 03:45 05/01/17 03:29 Lab Results: I have reviewed the past 24 hour labs Specialty Discharge - Follow Up or Referrals Follow up with: Nishant Lombardi MD [Physician] - 05/14/17 10:30 am <Anish Pugh - Last Filed: 05/01/17 18:07> Exam (Progress Note) - Constitutional Vitals: Period Temp Pulse Resp BP Sys/Gonsales Pulse Ox Last 24 Hr 97.5 F-98.9 F 53-102 16-20 101-133/57-87 90-99 Results - Labs CBC & BMP: 04/30/17 03:45 05/01/17 03:29
--- NOTE | 2017-05-01 10:38 | Fluoroscopy Report ---
Exam: [place] cholangiogram in surgery Date: 05/01/2017 12:00 AM Comparison: ERCP 04/30/2017 Indication: Right upper quadrant pain Technique:[Fluoroscopy, all 28 seconds documented. 19 films were obtained.] Findings: Injection of nonionic contrast material into the nondilated bile duct. Small filling defects are noted with contrast in the duodenum. Impression: Probable small air bubbles with no obstructing calculus identified. PROCEDURE INTERPRETED AT [facility] DEPARTMENT OF RADIOLOGY Final Report Signed by: Dr. Nini Martin
--- NOTE | 2017-05-01 10:47 | Anesthesia Post-Op ---
Anesthesia Post OP - Post Ansesthetic Evaluation Patient seen in post op: Yes Resp: within normal limits CV: within normal limits Mental: within normal limits Temp: within normal limits Wmpx-Yv-Knwkcmlsy: within normal limits Nausea and Vomiting: within normal limits Pain: within normal limits
[2017-05-01] MEDS ORDERED: HYDROmorphone 2 MG/1 ML VIAL ONE (10:49)
[2017-05-01] MEDS ORDERED: PROPOFOL 200 MG/20 ML VIAL IV ONE (10:49)
[2017-05-01] MEDS ORDERED: SEVOFLURANE 1 UNIT/15 MINUTE INH ONE (10:49)
[2017-05-01] MEDS ORDERED: ONDANSETRON 4 MG/2 ML VIAL ONE (10:50)
[2017-05-01] MEDS ORDERED: ROCURONIUM 100 MG/10 ML VIAL IV ONE (10:50)
[2017-05-01] MEDS ORDERED: MIDAZOLAM 2 MG/2 ML VIAL ONE (10:50)
[2017-05-01] MEDS ORDERED: DEXAMETHASONE 10 MG/1 ML VIAL ONE (10:50)
[2017-05-01] MEDS ORDERED: GLYCOPYRROLATE 0.4 MG/2 ML VIAL ONE (10:50)
[2017-05-01] MEDS ORDERED: fentaNYL 100 MCG/2 ML VIAL ONE (10:50)
[2017-05-01] MEDS ORDERED: NEOSTIGMINE 10 MG/10 ML VIAL ONE (10:50)
[2017-05-01] MEDS ORDERED: KETOROLAC 30 MG/1 ML VIAL ONE (10:50)
--- NOTE | 2017-05-01 11:43 | Hospitalist Progress Note ---
Assessment and Plan (1) Cholelithiasis Status: Acute Assessment and plan: Given the elevation of her liver function tests and leukocytosis with abdominal pain that localized in the right upper quadrant as well as the patient's ultrasound findings I believe he has symptomatic cholelithiasis versus choledocholithiasis with cholecystitis. The patient has been seen by general surgery and a GI. I will start him on IV antibiotics, IV fluids, pain medications. Further workup will depend on his response to therapy. 04/30/17 The patient has undergone ERCP with stone retrieval. He is being evaluated by general surgery for possible cholecystectomy. Current Visit: Yes Qualifiers: Cholelithiasis location: gallbladder Cholecystitis presence: with cholecystitis Cholecystitis acuity: acute Biliary obstruction: without biliary obstruction Qualified Code(s): K80.00 - Calculus of gallbladder with acute cholecystitis without obstruction (2) Right upper quadrant abdominal pain Status: Acute Current Visit: Yes (3) Elevated liver enzymes Status: Acute Assessment and plan: Hepatitis panel negative GI consult reviewed. ERCP report noted. Appreciate Dr. Pugh's help. Current Visit: Yes Hospitalist: Subjective Interval history: The case was discussed at length with Dr. Gupta. The patient underwent successful cholecystectomy today. Dr. Gupta has agreed to accept the patient onto his service and discharge him when he deems appropriate. The patient has no ongoing medical issues or problems at this time. I have nothing to add but am happy to answer questions if needed. The patient will be transferred to Dr. Gupta service. Exam - Constitutional Vitals: Period Temp Pulse Resp BP Sys/Gonsales Pulse Ox Last 24 Hr 97.5 F-98.9 F 50-102 16-20 101-137/57-95 94-100 Results - Labs CBC & BMP: 04/30/17 03:45 05/01/17 03:29 Specialty Discharge - Follow Up or Referrals Follow up with: Nishant Lombardi MD [Physician] - 05/14/17 10:30 am
--- NOTE | 2017-05-01 12:43 | Discharge Summary ---
Hospital Course - Hospital Course Hospital Course: Patient is a 26-year-old male presented with right upper quadrant pain with symptomatic Deborah lithiasis and suspected cholecystitis. He was admitted and started on IV antibiotics and GI consultation was obtained. He underwent ERCP with sphincterotomy and balloon stone extraction without complication. He subsequently underwent laparoscopic cholecystectomy without complication. Postoperatively, the patient was tolerating oral intake, his pain was well controlled, and he was voiding without difficulty. He was discharged home in good condition with appropriate analgesics, postoperative instructions, and follow-up appointment with Dr. Lombardi. Diagnosis - Discharge Diagnosis (1) Right upper quadrant abdominal pain Status: Acute (2) Choledocholithiasis Status: Acute (3) Cholelithiasis Status: Acute Specialty Discharge - Follow Up or Referrals Follow up with: Nishant Lombardi MD [Physician] - 05/14/17 10:30 am Discharge Plan - Discharge Data Disposition: Disch To Home/Self Care Condition at Discharge: Stable Discharge Diet: advance to your usual diet Activity: no lifting (>10 lb) Hygiene: may shower (beginning 2 days after surgery) Driving: other (Driving while taking narcotic) Contact your physician if you experience:: fever over 101, Redness or swelling, Nausea/Vomiting, Shortness of breath, Bleeding, pain uncontrolled by pain medications Wound / Dressing Care Instructions: Keep surgical incisions clean, dry and covered. Do not soak or submerge wounds. Pat was dry - Discharge Medications New HYDROcodone/ACETAMIN 5-325 [[place] 5-325] 1 - 2 tablet PO Q4-6H PRN #30 tablet PRN Reason: Pain Moderate To Severe (4-10) - Follow Up or Referral Follow Up: Nishant Lombardi MD [Physician] - 05/14/17 10:30 am - Forms/Instructions Instructions: Laparoscopic Cholecystectomy (DC) Exam - Constitutional Vitals: Period Temp Pulse Resp BP Sys/Gonsales Pulse Ox Last 24 Hr 97.5 F-98.9 F 50-102 16-20 101-136/57-87 94-99 Discharge Results Procedures and tests throughout hospitalization: ERCP with Dr. Anish Pugh on 04/30/[address] Nishant Lombardi on 05/01/2017 Pathology of gallbladder pending at time of discharge Labs on day of discharge: Labs from last 24 hours 05/01/17 03:29 Sodium 140 Potassium 4.2 Chloride 106 Carbon Dioxide 26 Anion Gap 12.2 BUN 8 Creatinine 0.80 GFR Calculation 164 BUN/Creatinine Ratio 10.00 Glucose 91 Calculated Osmolality 276.4 Calcium 8.4 L Total Bilirubin 1.60 H AST 119 H ALT 237 H Alkaline Phosphatase 136 H Total Protein 6.0 L Albumin 3.1 L Globulin 2.9 Albumin/Globulin Ratio 1.0 L - Imaging and Cardiology Procedure: CT Abdomen and Pelvis: image reviewed by me, report reviewed by me, Ultrasound: report reviewed by me (Abdominal; extensive cholelithiasis) - Additional Comments HIDA scan with nonvisualization of bile ducts and gallbladder DS: Provider Date of admission: 04/29/17 12:02 Primary care physician: . No PCP Attending physician on admission: Carlo Bianchi MD Consults: 04/29/17 12:36 Consult to Physician [CONS] Routine Comment: cholelithiasis Consulting Provider: Anish Pugh Consulting Provider Notified: Yes When should Consulting Provider be notified: Now Person Notified: Sharee called Date Notified: 04/29/17 Time Notified: 15:34 04/30/17 10:48 Consult to Physician [CONS] Routine Comment: Consulting Provider: Nishant Lombardi Consulting Provider Notified: Yes When should Consulting Provider be notified: Now Person Notified: libby called Date Notified: 04/30/17 Time Notified: 10:55 Discharging clinician: Evelyn Bowen PA-C
[2017-05-01 12:49] VITALS: BP 120/74
--- NOTE | 2017-05-01 13:05 | Operative Note ---
Date of procedure: 05/01/17 Pre-op diagnosis: Acute cholecystitis, choledocholithiasis Post-op diagnosis: same Procedure: Procedure performed: Laparoscopic cholecystectomy with intraoperative cholangiogram Procedure in detail: After informed consent was obtained, patient was taken operating suite lies upon the operating table. After general anesthesia was induced abdomen was prepped and draped in usual sterile fashion. After procedural pause local anesthetic infiltrated the skin and subcutaneous tissue just above the umbilicus. Incision was made and dissection carried down through skin and soft tissue. Fascia was grasped with Angel's and elevated fascial incision was made in the abdominal cavity was entered bluntly. Finger sweep revealed no adhesions. Urena trocar placed under direct visualization. Pneumoperitoneum achieved. Camera was inserted bowel mesentery inspected found to be free of any violation. Patient was placed in reverse Trendelenburg position rotated to the left. 2 5 mm trochars were placed in the right upper quadrant 11 mm subxiphoid trocar was placed all under visualization. The gallbladder identified. It was mildly edematous and dilated. It was grasped and elevated. There were some adhesions to the gallbladder which were bluntly dissected away. Infundibulum the gallbladder retracted toward the right hip. Dissection was carried out from lateral to medial approach and the triangle of Jose and the cystic duct and cystic artery were identified and isolated. Using a critical view technique these only 2 structures entering the gallbladder. A clip was placed the junction of the cystic duct neck of the gallbladder and partial transection made on cystic duct. Cholangiocatheter inserted and secured in place. Intraoperative glandular and performed. Cystic duct was patent. Common bile duct intra-and extrahepatic ducts all filled with no filling defects identified and contrast was seen easily entering the small bowel. The cholangiocatheter was removed and 2 clips were placed on the cystic duct just distal to the partial transection the transection completed. Anterior and posterior branch of the cystic artery were triple clipped and transected how long the gallbladder wall. Gallbladder was then removed from gallbladder fossa using hook cautery and placed in Endo Catch sac. It was removed to the Urena trocar site. Pneumoperitoneum reachieved. The right upper quadrant thoroughly irrigated and suctioned. The clips inspected found to be intact no leakage of bilious or sanguinous fluid. There was excellent hemostasis. All the irrigant remained clear was suctioned. Trochars were removed his abdomen desufflated. Fascia at the Urena trocar site closed using 0 Vicryl curydg-kv-ndrze interrupted suture. Wounds were thoroughly irrigated and suctioned the deep dermal layer closed with 3-0 Vicryl incision closed with radha. Sterile dressings applied. Patient was extubated and taken recovery room in stable condition. All lap and needle counts correct at the end of the case. Anesthesia: GETA Surgeon / Physician: Nishant Lombardi Estimated blood loss: other (Less than 10 cc) Specimens: other (Gallbladder) Condition: stable Disposition: PACU Results - Labs CBC & BMP: 04/30/17 03:45 05/01/17 03:29 Discharge Plan - Discharge Data Disposition: Disch To Home/Self Care - Discharge Medications New HYDROcodone/ACETAMIN 5-325 [[place] 5-325] 1 - 2 tablet PO Q4-6H PRN #30 tablet PRN Reason: Pain Moderate To Severe (4-10) - Follow Up or Referral Follow Up: Nishant Lombardi MD [Physician] - 05/14/17 10:30 am - Forms/Instructions Instructions: Laparoscopic Cholecystectomy (DC)
--- NOTE | 2017-05-02 12:25 | Pathology Report from [facility] ---
[facility] ACCESSION # : [id number] PATIENT NAME : Mariam Zapata ORDERING DR : Nishant Lombardi MD CLINICAL HX: Cholelithiasis POST-OP DX: Same SPECIMEN INFO: Gallbladder GROSS DESCRIPTION: Received in formalin labeled MARIAM ZAPATA is an intact gallbladder measuring 12.0 x 3.2 cm. The gallbladder wall measures 0.3 cm. The mucosa is velvety and brown tinged. The lumen is filled with dark brown bile with several lobulated yellow stones noted measuring up to 1.5 cm. [employer] Admin sections are submitted in one cassette. DIAGNOSIS FOR MARIAM ZAPATA: GALLBLADDER, CHOLECYSTECTOMY: Chronic cholecystitis; cholelithiasis. COLLECTED DATE: 05/01/2017 [facility] REPORT DATE: 05/02/2017 ELECTRONICALLY SIGNED BY: Martinez Arambula M.D. 05/02/2017 - 10:04:20 [facility]
--- NOTE | 2017-05-02 15:28 | Physician Query Form ---
CLICK EDIT DOCUMENT TO SELECT QUERY ANSWER --> OK --> SIGN Nata Moore RN Clinical Supervisor Production W) [phone] (f) [phone] [email or web address] PROVIDERS: Make your selection(s) from the choices in EACH section by typing an "x" and enter comments in the comment section. Please use your independent medical judgment in providing your response. This request does not imply that any particular answer is desired or expected. CLINICAL INDICATORS: (Providers should not edit this section) Based on conflicting documentation of "Choledocholithiasis with high-grade occlusion of the duct" and "Cholecystitis / cholelithiasis with out occlusion" Please clarify Based on the above, could you clarify the appropriate diagnosis, if significant , that supports the above abnormalities and additional evaluation, monitoring, and/or treatment rendered: (x ) Choledocholithiasis with high-grade occlusion of the duct ( ) Cholecystitis / cholelithiasis without occlusion ( ) Other, please specify: ( ) Clinically unable to determine COMMENTS: PLEASE ALSO DOCUMENT RESPONSE IN PROGRESS NOTES AND/OR DISCHARGE SUMMARY Use of terms such as suspected, likely, or probable (associated with a specific diagnosis that is being evaluated, monitored, or treated as if it exists) are acceptable and can be restated in the discharge summary if not ruled out. MTDD
== END 2017-05-01 13:33 | disposition home or self-care (01) | DRG 419 ==
LOC: N.ED 06:51 → N.EDINP 12:02 → SUATTDRO 12:02 → N.EDINP 14:48 → N.3E 15:00
PROVIDERS: ADMIT Family Medicine; ATTEND Surgery
PROC: ERCPWSP (ICD-10-PCS; 2017-04-30 11:35)
PROC: LAPCHOL (2017-05-01 09:31)